=== PATIENT | female | born 1935 | race Caucasian/White ===

== ENCOUNTER 2016-08-21 13:43 | Outpatient (CLI) | payer MEDICARE, OTHER | END 2016-08-21 13:44 | disposition home or self-care (01) | DX: E87.1 Hypo-osmolality and hyponatremia (principal) ==

== ENCOUNTER 2016-11-24 09:35 | Outpatient (CLI) | payer MEDICARE, OTHER ==
--- NOTE | 2016-11-25 17:03 | Nuclear Medicine Report ---
EXAM: THYROID UPTAKE AND SCAN EXAM DATE: 11/24/2016 09:54 AM. CLINICAL HISTORY: THYROID NODULE. COMPARISON: None available. TECHNIQUE: Patient was administered 300 microcuries of I-123 orally and returned at 4 and 24 hours fo r thyroid uptake measurement. At 4 hours after radioiodine ingestion, anterior gamma camera images of the patient's neck were obtained from 3 standard angles. FINDINGS: Uptake: 4 Hour: 4.8%% (Normal 4-18%). 24 Hour: 15.2%% (Normal 8-32%). Thyroid Scan: There is a dominant hot nodule in the lower left thyroid lobe. IMPRESSION: 1. Normal 4 and 24-hour uptake. 2. Dominant hot nodule in the lower left thyroid lobe. [facility] Referring Provider Line: [phone] SITE ID: [id number]
== END 2016-11-24 09:36 | disposition home or self-care (01) ==
LOC: DI 09:35
PROVIDERS: ATTEND Internal Medicine
DX: E04.1 Nontoxic single thyroid nodule (principal)
CPT/HCPCS: 78014; A9509

== ENCOUNTER 2016-12-25 11:36 | Outpatient (CLI) | payer MEDICARE, OTHER ==
--- NOTE | 2016-12-26 13:15 | Mammography Report ---
DIGITAL SCREENING MAMMOGRAM: 12/25/2016 CLINICAL INDICATION: An 81-year-old with family history of breast cancer for screening, history of b enign biopsy. COMPARISON: 12/2015, 12/2014, 12/2013, 12/2012, 11/2011, 11/2010, 10/2009, 09/2008, 09/2007. TECHNIQUE: Routine CC and MLO projections were obtained of the breasts. FINDINGS: The breasts again demonstrate heterogeneously dense fibroglandular parenchyma bilaterally. Coarse and punctate, typically benign calcifications are present. No suspicious masses, clustered microcalcifications, or regions of architectural distortion are identified. IMPRESSION: BENIGN FINDINGS. RECOMMENDATION: Routine annual screening unless otherwise clinically indicated. BIRADS CATEGORY 2 - BENIGN FINDINGS. STANDARD QUALIFYING STATEMENTS 1. This examination was reviewed with the aid of Computer-Aided Detection (CAD). 2. A negative or benign imaging report should not delay biopsy if clinically suspicious findings are present. Consider surgical consultation if warranted. More than 5% of cancers are not identified by i maging. 3. Dense breasts may obscure an underlying neoplasm. JOB #: [id number] EXT JOB #:[id number]
== END 2016-12-25 11:37 | disposition home or self-care (01) ==
LOC: DI.S 11:36
PROVIDERS: ATTEND Internal Medicine
DX: Z12.31 Encounter for screening mammogram for malignant neoplasm of breast (principal); Z80.3 Family history of malignant neoplasm of breast
CPT/HCPCS: 77067

== ENCOUNTER 2017-07-09 09:02 | Outpatient (CLI) | payer MEDICARE, OTHER ==
--- NOTE | 2017-07-09 10:24 | XRAY Report ---
DATE OF SERVICE: 07/09/2017 ESOPHAGRAM: 07/09/2017 CLINICAL INDICATION: Dysphagia. Esophagram was performed in the upright and prone positions. 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 The esophagus demonstrates tertiary contractions. A moderate hiatal hernia is present. No esophageal ulceration or mass lesion is appreciated. No fixed stricturing is identified. Reflux was visualized throughout the course of the examination. A 13-mm barium pill passed from the hypopharynx into the Zenker's diverticulum, then back into the esophagus, through the hiatal hernia, and into the stomach. IMPRESSION 1. 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 2. Moderate hiatal hernia, producing reflux. 3. No esophageal mass lesion, ulceration, or fixed stricturing. FLUOROSCOPY TIME: Two minutes 43 seconds; 26 spot images obtained. TD: 07/09/2017 11:23
== END 2017-07-09 09:03 | disposition home or self-care (01) ==
LOC: DI 09:02
PROVIDERS: ATTEND Internal Medicine
DX: K22.5 Diverticulum of esophagus, acquired (principal); K44.9 Diaphragmatic hernia without obstruction or gangrene; K21.9 Gastro-esophageal reflux disease without esophagitis
CPT/HCPCS: 74220

== ENCOUNTER 2017-12-25 07:11 | Outpatient (CLI) | payer MEDICARE, OTHER ==
[2017-12-25 12:10] LABS: BASOPHILS # (AUTO) 0.1 10^3/uL (0.0-0.1); BASOPHILS % (AUTO) 0.8 %; EOSINOPHILS # (AUTO) 0.6 10^3/uL (0.0-0.7); EOSINOPHILS % (AUTO) 6.4 %; HGB - HEMOGLOBIN 11.6 g/dL (12.0-16.0); LYMPHOCYTES # (AUTO) 2.4 10^3/uL (1.5-3.5); LYMPHOCYTES % (AUTO) 26.2 %; MEAN CORPUSCULAR HEMOGLOBIN 30.9 pg (27.0-31.0); MEAN CORPUSCULAR HGB CONC 33.3 g/dL (32.0-36.0); MEAN CORPUSCULAR VOLUME 92.9 fL (81.0-99.0); MEAN PLATELET VOLUME 9.6 fL (7.9-10.8); MONOCYTES # (AUTO) 0.5 10^3/uL (0.0-1.0); MONOCYTES % (AUTO) 5.6 %; NEUTROPHILS # (AUTO) 5.5 10^3/uL (1.5-6.6); PLT - PLATELET COUNT 404 10^3/uL (130-450); RED BLOOD COUNT 3.76 10^6/uL (4.20-5.40); WHITE BLOOD COUNT 9.1 x10^3/uL (4.8-10.8)
[2017-12-25 12:29] LABS: ALBUMIN/GLOBULIN RATIO 0.8 (1.0-2.2); ALKALINE PHOSPHATASE 55 IU/L (42-121); ALT ALANINE AMINOTRANSFERASE 17 IU/L (10-60); AMYLASE 17 U/L (28-100); AST ASPARTATE AMINOTRANSFERASE 21 IU/L (10-42); BILIRUBIN,TOTAL 0.4 mg/dL (0.2-1.0); BUN - BLOOD UREA NITROGEN 10 mg/dL (6-20); CALCIUM 9.1 mg/dL (8.5-10.3); CARBON DIOXIDE - CO2 28 mmol/L (21-32); CHLORIDE 98 mmol/L (101-111); CHOL/HDL RATIO 3.3 (<4.4); CHOLESTEROL 133 mg/dL; CREATININE 0.8 mg/dL (0.4-1.0); GFR - MDRD 68 (>89); GLUCOSE 120 mg/dL (70-100); HDL CHOLESTEROL 40 mg/dL; LDL CHOLESTEROL,CALCULATED 71 mg/dL; LDL/HDL RATIO 1.8 (<4.4); LIPASE 19 U/L (22-51); SODIUM 134 mmol/L (135-145); TOTAL PROTEIN 6.8 g/dL (6.7-8.2); VLDL CHOLESTEROL 22 mg/dL
[2017-12-25 12:32] LABS: CREATININE,URINE 55.6 mg/dL
[2017-12-25 12:37] LABS: THYROID STIMULATING HORMONE 0.95 uIU/mL (0.34-5.60)
[2017-12-25 12:38] LABS: BILIRUBIN,URINE NEGATIVE (NEGATIVE); GLUCOSE, URINE (UA) NEGATIVE (NEGATIVE); KETONES,URINE (UA) NEGATIVE (NEGATIVE); LEUKOCYTE ESTERASE, URINE LARGE (NEGATIVE); NITRITE,URINE POSITIVE (NEGATIVE); OCCULT BLOOD,URINE NEGATIVE (NEGATIVE); PROTEIN,URINE NEGATIVE (NEGATIVE); UROBILINOGEN,URINE 0.2 (NORMAL) E.U./dL (NORMAL)
[2017-12-25 12:39] LABS: CLARITY,URINE HAZY (CLEAR); FREE T4 (FREE THYROXINE) 1.29 ng/dL (0.58-1.64)
[2017-12-25 12:48] LABS: BACTERIA,URINE Many /HPF (None Seen); RBC,URINE 0-5 /HPF (0-5); SQUAMOUS EPITHELIAL CELL,UR MANY Squamous (<= Few); WBC CLUMPS,URINE PRESENT
[2017-12-25 13:08] LABS: HEMOGLOBIN A1C 0.6 g/dL; HEMOGLOBIN A1C % 6.4 % (4.6-6.2)
[2017-12-25 16:16] LABS: % IRON SATURATION 25 % (20-50); CK- CREATINE KINASE 25 IU/L (22-269); IRON 60 ug/dL (28-170); TOTAL IRON BINDING CAPACITY 244 ug/dL (250-450); TRANSFERRIN 174 mg/dL (192-382)
== END 2017-12-25 07:12 | disposition home or self-care (01) ==
LOC: LAB.F 07:11
PROVIDERS: ATTEND Internal Medicine
DX: E05.90 Thyrotoxicosis, unspecified without thyrotoxic crisis or storm (principal); R63.4 Abnormal weight loss; Z79.899 Other long term (current) drug therapy; D64.9 Anemia, unspecified; R63.0 Anorexia; G43.909 Migraine, unspecified, not intractable, without status migrainosus; E87.1 Hypo-osmolality and hyponatremia; E11.9 Type 2 diabetes mellitus without complications; I10 Essential (primary) hypertension; E78.5 Hyperlipidemia, unspecified; R20.2 Paresthesia of skin; Z13.6 Encounter for screening for cardiovascular disorders
CPT/HCPCS: 36415; 80053; 80061; 81001; 81003; 82043; 82150; 82550; 82570; 82607; 82728; 82746; 83036; 83540; 83690; 83721; 84439; 84443; 84466; 85025; 87086

== ENCOUNTER 2018-01-04 10:26 | Outpatient (CLI) | payer MEDICARE, OTHER ==
[2018-01-04] MEDS ORDERED: IOPAMIDOL-300 50 ML VIAL ONE (10:47)
[2018-01-04] MEDS ORDERED: IOPAMIDOL-300 100 ML VIAL ONE (10:47)
[2018-01-04] MEDS ORDERED: IOPAMIDOL-300 50 ML VIAL PO ONE (11:36)
[2018-01-04] MEDS ORDERED: IOPAMIDOL-300 100 ML VIAL IVP ONE (11:48)
--- NOTE | 2018-01-05 08:59 | CT Report ---
Procedure Date: 01/04/2018 Accession Number: [id number] / [id number] Procedure: CT - Abdomen/Pelvis W/ CPT Code: FULL RESULT: EXAM: CT CHEST, ABDOMEN AND PELVIS EXAM DATE: 01/04/2018 11:58 AM. CLINICAL HISTORY: WEIGHT LOSS, ANEMIA, FATIGUE. COMPARISONS: None. TECHNIQUE: Routine helical CT imaging was performed through the chest, abdomen, and pelvis. IV contrast: ISOVUE 300 100mL. Enteric contrast: No. Reconstructions: Coronal and sagittal. In accordance with CT protocol optimization, one or more of the following dose reduction techniques were utilized for this exam: automated exposure control, adjustment of mA and/or KV based on patient size, or use of iterative reconstructive technique. FINDINGS: Lungs/Pleura: Scattered diffuse increased interstitial lung markings are noted bilaterally. Mild bronchiectasis is noted. There is no pleural effusion or pneumothorax. Mediastinum: There is a heterogeneous appearance of the thyroid gland. No mediastinal mass is seen. There is a large hiatal hernia. Solid organs: The liver is without evidence of an enhancing mass. The spleen, pancreas, and adrenal glands are normal in appearance. The kidneys are without evidence of a mass or hydronephrosis. There is no evidence of hydroureter. The urinary bladder is without evidence of a calculus Peritoneal Cavity/Bowel: Diverticuli are seen involving the descending and sigmoid colon. There is no fat stranding or fluid collection to suggest the presence of diverticulitis. There are no dilated loops of bowel to suggest the presence of an obstruction. The appendix is not clearly identified. There is no CT evidence of acute appendicitis. Pelvic Organs: No mass or cyst is seen within the pelvis. There is no pelvic or periaortic lymphadenopathy. Vasculature: There is atherosclerosis of the aorta and iliac arteries. THere is no evidence of an abdominal aortic aneurysm. Bones: There are degenerative changes of the thoracic and lumbar spine. Other: None. IMPRESSION: Scattered interstitial infiltrates with associated bronchiectasis. This most likely represents an interstitial lung disease. Large hiatal hernia. [facility]
== END 2018-01-04 10:27 | disposition home or self-care (01) ==
LOC: DI 10:26
PROVIDERS: ATTEND Internal Medicine
DX: R91.8 Other nonspecific abnormal finding of lung field (principal); J47.9 Bronchiectasis, uncomplicated; K44.9 Diaphragmatic hernia without obstruction or gangrene
CPT/HCPCS: 71260; 74177; Q9967

== ENCOUNTER 2018-01-14 11:21 | Outpatient (CLI) | payer MEDICARE, OTHER ==
--- NOTE | 2018-01-15 14:52 | Mammography Report ---
Procedure Date: 01/14/2018 Accession Number: [id number] / [id number] Procedure: MGN - Screening Mammo Dig Bilat CPT Code: FULL RESULT: EXAM: Screening Mammo Dig Bilat DATE: 01/14/2018 11:41 AM CLINICAL HISTORY: 82-year-old female with history of right breast procedure was benign pathology results presents for screening mammogram. TECHNIQUE: Bilateral CC and MLO views were obtained. COMPARISON: 12/25/2016, 12/25/2015, 01/04/2015, 01/10/2014. FINDINGS: The breasts demonstrate scattered fibroglandular densities bilaterally. Typically benign coarse calcifications are identified bilaterally. No suspicious masses, clustered microcalcifications, or regions of architectural distortion are identified. IMPRESSION: Benign findings RECOMMENDATION: Routine annual screening unless otherwise clinically indicated. BIRADS CATEGORY 2: Benign findings STANDARD QUALIFYING STATEMENTS: 1. This examination was reviewed with the aid of Computer-Aided Detection (CAD). 2. A negative or benign imaging report should not delay biopsy if clinically suspicious findings are present. Consider surgical consultation if warrented. More than 5% of cancers are not identified by imaging. 3. Dense breasts may obscure an underlying neoplasm.
== END 2018-01-14 11:22 | disposition home or self-care (01) ==
LOC: DI.N 11:21
PROVIDERS: ATTEND Internal Medicine
DX: Z12.31 Encounter for screening mammogram for malignant neoplasm of breast (principal)
CPT/HCPCS: 77067

== ENCOUNTER 2018-01-17 14:52 | Outpatient (CLI) | payer MEDICARE, OTHER ==
--- NOTE | 2018-01-18 07:07 | Ultrasound Report ---
Procedure Date: 01/17/2018 Accession Number: [id number] / [id number] Procedure: US - Head or Neck Soft Tissue CPT Code: FULL RESULT: EXAM: THYROID ULTRASOUND EXAM DATE: 01/17/2018 04:26 PM. CLINICAL HISTORY: MULTINODULAR GOITER. COMPARISON: None. TECHNIQUE: Real time sonographic imaging of the thyroid was performed by the glycerin operator. Multiple national sales representative static images were saved for review. FINDINGS: THYROID GLAND: Right Lobe: 5.3 x 2.3 x 2.3 cm, volume 14.6 cc. Heterogeneous Right Lobe Nodules: Largest nodules 1. Lower pole 1.7 x 1.6 x 1.7 cm low cystic solid, vascular, noncalcified 2. Upper pole 0.9 x 0.5 x 0.6 cm isoechoic, noncalcified Left Lobe: 4.3 x 1.9 x 2.7 cm, volume 11.5 cc. Heterogeneous Left Lobe Nodules: Largest nodules 1. Lower pole 2.4 x 1.7 x 2.5 cm hypoechoic avascular, noncalcified 2. Midpole cystic solid noncalcified 1.2 x 0.7 x 1.1 cm 3. For pole 1.3 x 0.8 cm noncalcified 1.1 x 0.7. Isthmus: 0.31 cm AP. Isthmic Nodules: None. LYMPH NODES: No adenopathy demonstrated in the central or lateral compartment. OTHER: None. IMPRESSION: 1. Multiple bilateral nodules. There is one lower pole nodule on each side which meets criteria for biopsy Management recommendations are based on 2015 [place] [employer] Management Guidelines for Adult Patients with Thyroid Nodules and Differentiated Thyroid Cancer. [facility]
== END 2018-01-17 14:53 | disposition home or self-care (01) ==
LOC: DI 14:52
PROVIDERS: ATTEND Internal Medicine
DX: E04.2 Nontoxic multinodular goiter (principal)
CPT/HCPCS: 76536

== ENCOUNTER 2018-02-05 08:40 | Outpatient (CLI) | payer MEDICARE, OTHER ==
--- NOTE | 2018-02-05 12:08 | Ultrasound Report ---
Procedure Date: 02/05/2018 Accession Number: [id number] / [id number] Procedure: US - Fine Needle Aspiration CPT Code: FULL RESULT: PROCEDURE: ULTRASOUND GUIDED FINE-NEEDLE ASPIRATION PREOPERATIVE DIAGNOSIS: Bilateral thyroid nodules, possibly malignant. POSTOPERATIVE DIAGNOSIS: Same TECHNIQUE: Following written and oral informed consent including procedure risks and alternatives, the patient was brought to the ultrasound suite and positioned. Using local anesthesia, sterile technique, and direct ultrasound control, a FNA needles were advanced to the targeted mass and shaving/aspiration-type technique was used. A total of 4 FNA samples were obtained from the dominant left thyroid nodule and a total of 3 FNA samples were obtained from the dominant right thyroid nodule. All needles were removed. The patient tolerated the procedure well and there were no immediate complications. CONTAMINATED LAND CONSULTANT: Dr Chacon ESTIMATED BLOOD LOSS: Minimal FLUOROSCOPY TIME: None. COMPLICATIONS: None. CONDITION: Good. SPECIMEN: Fine-needle aspirate in appropriate solution. IMPLANTS: None. FINDINGS: Real-time ultrasound performed with static images saved to the PACS demonstrating the needle directed into the mass. IMPRESSION: Uncomplicated ultrasound guided fine needle aspiration as described. Pathology results will be reported separately. [facility]
[2018-02-05] MEDS: BUFFERED LIDOCAINE 10 ML SYRINGE IU ONE (15:42)
== END 2018-02-05 08:41 | disposition home or self-care (01) ==
LOC: DI 08:40
PROVIDERS: ATTEND Internal Medicine
DX: E04.2 Nontoxic multinodular goiter (principal)
CPT/HCPCS: 10022

== ENCOUNTER 2019-01-21 14:48 | Outpatient (CLI) | payer MEDICARE, OTHER ==
--- NOTE | 2019-01-24 08:58 | Mammography Report ---
Reason: ANNUAL SCREENING Procedure Date: 01/21/2019 Accession Number: [id number] / [id number] Procedure: JUAN - Screening Mammo Dig Bilat CPT Code: FULL RESULT: EXAM: Screening Mammo Dig Bilat DATE: 01/21/2019 3:32 PM CLINICAL HISTORY: Screening encounter. History of benign right breast biopsy. Family history of breast cancer in the mother at the age of 55 and a sister at the age of 70. TECHNIQUE: (B) - Bilateral CC, laterally exaggerated CC, MLO views were obtained. COMPARISON: 01/14/2018 through 01/04/2015. PARENCHYMAL PATTERN: (A) - The breast(s) demonstrate(s) scattered fibroglandular densities. FINDINGS: There are coarse typically benign calcifications. There are no suspicious masses, calcifications, or areas of distortion. IMPRESSION: Benign findings. BI-RADS category 2. RECOMMENDATION: (ANNUAL) - Recommend routine annual screening mammography. BI-RADS CATEGORY: (2) - Benign Findings. STANDARD QUALIFYING STATEMENTS: 1. This examination was not reviewed with the aid of Computer-Aided Detection (CAD). 2. A negative or benign imaging report should not preclude biopsy if clinically suspicious findings are present. 3. Dense breasts may obscure an underlying neoplasm. 4. This examination was reviewed without the aid of 3D breast imaging (tomosynthesis).
== END 2019-01-21 14:49 | disposition home or self-care (01) ==
LOC: DI 14:48
PROVIDERS: ATTEND Internal Medicine
DX: Z12.31 Encounter for screening mammogram for malignant neoplasm of breast (principal); Z80.3 Family history of malignant neoplasm of breast
CPT/HCPCS: 77067

== ENCOUNTER 2020-02-02 11:26 | Outpatient (CLI) | payer MEDICARE, OTHER ==
--- NOTE | 2020-02-02 13:15 | XRAY Report ---
PROCEDURE: Chest 2 View X-Ray INDICATIONS: DYSPNEA TECHNIQUE: 2 view(s) of the chest. COMPARISON: CT chest 01/04/2018, chest x-ray 09/21/2014. FINDINGS: Surgical changes and devices: None. Lungs and pleura: No pleural effusions or pneumothorax. Chronic interstitial changes are present wit h a fibrotic like pattern. There is mild increased prominence within the right upper lobe. Overall in terstitial prominence has become progressive over prior exams. Mediastinum: Mediastinal contours are normal. Heart size is normal. Bones and chest wall: No suspicious bony abnormalities. Soft tissues appear unremarkable. IMPRESSION: Progressive appearance of interstitial changes suggestive of fibrosis compared to prior exams. Focal prominence within the right upper lobe is noted. This is suggestive of superimposed acut e/subacute airspace disease such as pneumonia. However, asymmetric progression of fibrotic change can not be completely excluded as most recent prior exam was 2018. Recommend short interval imaging follo w-up after appropriate therapy to document resolution or CT chest for further evaluation. Reviewed by: Jeny Diop MD on 02/02/2020 1:13 PM PDT Approved by: Jeny Diop MD on 02/02/2020 1:13 PM PDT Station ID: [id number]
== END 2020-02-02 11:27 | disposition home or self-care (01) ==
LOC: DI.S 11:26
PROVIDERS: ATTEND Internal Medicine
DX: R06.00 Dyspnea, unspecified (principal)
CPT/HCPCS: 71046

== ENCOUNTER 2020-03-08 10:30 | Outpatient (CLI) | payer MEDICARE, OTHER ==
--- NOTE | 2020-03-08 12:04 | XRAY Report ---
PROCEDURE: Chest 2 View X-Ray INDICATIONS: OTHER NONSPECIFIC ABNORMAL FINDING OF LUNG FIELD TECHNIQUE: 2 view(s) of the chest. COMPARISON: 02/02/2020. FINDINGS: Surgical changes and devices: None. Lungs and pleura: No pleural effusions or pneumothorax. Increased interstitial reticular lung markin gs are noted bilaterally suggestive of chronic interstitial lung parenchymal disease. Ill-defined [place] in right apex is seen suggestive of interstitial prominent fibrosis. Underlying small infiltrate s cannot be excluded. Mediastinum: Mediastinal contours are normal. Heart size is normal. Bones and chest wall: No suspicious bony abnormalities. Soft tissues appear unremarkable. IMPRESSION: Finding is suggestive of chronic interstitial lung parenchyma disease and suggestion of interstitial [place] fibrosis more prominent in right apex not significant changed from prior study. No pleural ef fusion or pneumothorax. No definite focal infiltrate. Reviewed by: Jerry Lake MD on 03/08/2020 12:03 PM PDT Approved by: Jerry Lake MD on 03/08/2020 12:03 PM PDT Station ID: [id number]
== END 2020-03-08 10:31 | disposition home or self-care (01) ==
LOC: DI.S 10:30
PROVIDERS: ATTEND Internal Medicine
DX: R91.8 Other nonspecific abnormal finding of lung field (principal)
CPT/HCPCS: 71046

== ENCOUNTER 2020-03-26 10:49 | Outpatient (CLI) | payer MEDICARE, OTHER ==
[2020-03-26] MEDS ORDERED: IOVERSOL 320 100 ML VIAL IVP ONE ×2 (11:50→13:01)
--- NOTE | 2020-03-26 12:49 | CT Report ---
PROCEDURE: CHEST W INDICATIONS: ABNORMAL CXR CONTRAST: IV CONTRAST: Optiray 320 ml: 100 PO CONTRAST: *NO PO CONTRAST TECHNIQUE: After the administration of intravenous contrast, 5 mm thick sections acquired from the pulmonary api susan to the posterior costophrenic angles. 7 mm thick coronal MIP reformats were acquired. For radia tion dose reduction, the following was used: automated exposure control, adjustment of mA and/or kV according to patient size. COMPARISON: 2 view chest 09/21/[address] with contrast 01/04/2018 reviewed. FINDINGS: Image quality: Excellent. Lungs and pleura: No definite acute air space opacities, but there has been a slowly progressive pat tern of interval worsening of alveolitis and pulmonary fibrosis within the lungs bilaterally, best se en at the upper lobes bilaterally greater on the right than the left with associated lung parenchymal cystic change and also cylindrical bronchiectasis greater on the right than the left. This pattern i s also seen to a lesser degree within the lingular segment of the left upper lobe near the ventricula r apex on the left. Lung volumes are relatively large, COPD may be superimposed.. No pleural effusions or pneumothorax. Central and peripheral airways are patent and the abnormal change in caliber of the airways is best seen at the right upper lobe. Mediastinum: Heart size is normal. No pericardial effusion. No mediastinal or hilar adenopathy by size criteria. Thoracic aorta and central pulmonary arteries are normal in size. Esophagus is eliceo l in caliber. Moderately large hiatal hernia. Bones and chest wall: No suspicious bony lesions. No vertebral body compression fractures. No axil marlen or supraclavicular adenopathy by size criteria. Thyroid gland appears heterogeneous in enhancem ent where well seen and likely contains several nodules within, greater on the right than the left.. Abdomen: Visualized upper abdominal solid organs appear normal. Upper abdominal bowel loops are nor mal in caliber. There is a moderately large hiatal hernia behind the heart. IMPRESSION: 1. Progressive alveolitis and pulmonary fibrosis pattern, with interval development of cystic fibroti c additional fibrotic change is seen through the mid lungs and lower lungs bilaterally, without CT fi ndings that would suggest presence of superimposed acute pneumonia at this time. However, the lung vo lumes are relatively large and COPD may be superimposed. Please correlate clinically for smoking hist ory. 2. Heterogeneous enhancement of the thyroid gland bilaterally with a nodular pattern greater on the r ight than the left. Thyroid nodules likely are present, follow-up thyroid ultrasound is recommended. 3. Note is made of a moderately large hiatal hernia behind the heart. Reviewed by: Santi Kumari MD on 03/26/2020 12:48 PM PDT Approved by: Santi Kumari MD on 03/26/2020 12:48 PM PDT Station ID: [id number]
== END 2020-03-26 10:50 | disposition home or self-care (01) ==
LOC: DI 10:49
PROVIDERS: ATTEND Internal Medicine
DX: R91.8 Other nonspecific abnormal finding of lung field (principal); Z79.899 Other long term (current) drug therapy; J84.112 Idiopathic pulmonary fibrosis; K44.9 Diaphragmatic hernia without obstruction or gangrene
CPT/HCPCS: 36415; 71260; 82565; Q9967

== ENCOUNTER 2020-06-08 12:52 | Outpatient (CLI) | payer MEDICARE, OTHER ==
--- NOTE | 2020-06-08 17:20 | Ultrasound Report ---
PROCEDURE: Head or Neck Soft Tissue INDICATIONS: THYROID NODULE TECHNIQUE: Real time scanning was performed of the neck region of interest, with image documentation . COMPARISON: Prior chest CT scanning 03/27/2020. FINDINGS: There are scattered bilateral thyroid nodules, too evaluated on the right at the upper and lower thirds of the thyroid gland, and 3 clustered at the lower half of the left thyroid gland. The r ight thyroid lobe measures up to 2.1 x 2.9 x 4.8 cm and the left measures up to 1.8 x 2.4 x 4.4 cm. T he isthmus is 1.1 cm in thickness. It is noted that the thyroid gland is low in positioning in this p atient, who demonstrates frequent swallowing despite requested not, and the left thyroid lobe is pred ominantly below the clavicle. The right upper thyroid nodule measures 4 x 7 x 7 mm, is solid, isoechoic, wider than tall, smoothly marginated and contains no abnormal echogenic foci. This yields a TI RADS score of 3, TI RADS categor ization of 3, and no sonographic follow-up or biopsy is recommended given its small size and low degr ee of concern. The right lower thyroid nodule measures 1.8 x 1.9 x 1.5 cm and has not significantly enlarged, and is nearly completely solid, overall isoechoic to slightly hypoechoic, wider than tall, smoothly margina ko and contains no abnormal hyperechoic focus site. This yields a score of 3, categorization of 3, a nd given its average size of less than 2.5 cm follow-up by ultrasound rather than biopsy is recommend ed in 1 year, 3 years, and 5 years. Within the lower half of the left thyroid lobe 3 separate adjacent nodules are present. These each ar e solid or predominantly solid, irregular in margination, and hypoechoic. The nodule considered #3, p ositioned laterally at the margin of the middle third of the gland measures 1.2 x 0.9 x 1.1 cm. This yields a score of 6, and a categorization value of 4. This is considered moderately suspicious but gi vazquez its average size of less than 1.5 cm it is recommended that this be followed by ultrasound in 1, 2, 3, and 5 years from now. More medially at the same axial level the nodule considered #5 measures 2.3 x 1.6 x 1.5 cm and has no t significantly enlarged, this structure is solid, hypoechoic, wider than tall, lobulated/irregular a t its margins, and contains several macrocalcifications. This yields a overall score of 7, categoriza tion of 5, and is considered suspicious. A nodule of this character generally wouldn't be biopsied bu t may not be accessible for safe ultrasound-guided fine needle aspiration. A sonographic attempt at b iopsy is likely warranted but by position and inability of the patient to maintain a nonswallowing st atus safe access is considered likely not possible, and therefore this structure should be followed b y ultrasound instead if biopsy is not possible in 1, 2, 3 and 5 years from now. Finally, at the lower third of the left thyroid lobe even more inferiorly a nodule considered #4 susan ures 1.3 x 0.7 x 1.3 cm, has not enlarged, is predominantly solid, very hypoechoic, wider than tall, irregular in its margination and contains no internal calcifications. This structure yields a score o f 7, a categorization of 5, is suspicious, and given its average size of slightly over 1 cm wouldn't generally be biopsied but again likely will not be interposition for safe biopsy and in that case fol low-up in 1, 2, 3 and 5 years from now is recommended. IMPRESSION: Bilateral thyroid nodules, multiple, none of which appear to have enlarged from a prior thyroid ultra sound in December 2017. These have a variable degree of sonographic concern, and as discussed above the p atient thyroid position is very low including much of the left thyroid lobe is behind the clavicle. F or this reason biopsy into the left lower thyroid nodules may not be safely possible. A sonographic a ssessment for biopsy as discussed above is warranted but may not be successful. In that case follow-u p by ultrasound is recommended as noted above. Reviewed by: Santi Kumari MD on 06/08/2020 5:19 PM PST Approved by: Santi Kumari MD on 06/08/2020 5:19 PM PST Station ID: [id number]
== END 2020-06-08 12:53 | disposition home or self-care (01) ==
LOC: DI 12:52
PROVIDERS: ATTEND Internal Medicine
DX: E04.1 Nontoxic single thyroid nodule (principal)

== ENCOUNTER 2021-05-28 10:55 | Outpatient (CLI) | payer MEDICARE, OTHER ==
[2021-05-28 15:15] LABS: BASOPHILS % (AUTO) 0.2 %; EOSINOPHILS # (AUTO) 0.1 10^3/uL (0.0-0.7); EOSINOPHILS % (AUTO) 0.4 %; HGB - HEMOGLOBIN 12.5 g/dL (12.0-16.0); LYMPHOCYTES # (AUTO) 1.9 10^3/uL (1.5-3.5); LYMPHOCYTES % (AUTO) 11.8 %; MEAN CORPUSCULAR HEMOGLOBIN 30.8 pg (27.0-31.0); MEAN CORPUSCULAR HGB CONC 32.9 g/dL (32.0-36.0); MEAN CORPUSCULAR VOLUME 93.6 fL (81.0-99.0); MEAN PLATELET VOLUME 11.3 fL (7.9-10.8); MONOCYTES # (AUTO) 0.2 10^3/uL (0.0-1.0); MONOCYTES % (AUTO) 1.4 %; NEUTROPHILS # (AUTO) 13.9 10^3/uL (1.5-6.6); NEUTROPHILS % (AUTO) 85.7 %; PLT - PLATELET COUNT 369 10^3/uL (130-450); RED BLOOD COUNT 4.06 10^6/uL (4.20-5.40); RED CELL DISTRIBUTION WIDTH 12.3 % (12.0-15.0); WHITE BLOOD COUNT 16.2 x10^3/uL (4.8-10.8)
[2021-05-28 16:06] LABS: ALKALINE PHOSPHATASE 58 IU/L (42-121); ALT ALANINE AMINOTRANSFERASE 15 IU/L (10-60); AST ASPARTATE AMINOTRANSFERASE 20 IU/L (10-42); BUN - BLOOD UREA NITROGEN 20 mg/dL (6-20); CALCIUM 9.2 mg/dL (8.5-10.3); CARBON DIOXIDE - CO2 29 mmol/L (21-32); CHLORIDE 89 mmol/L (101-111); CHOL/HDL RATIO 3.6 (<4.4); CHOLESTEROL 243 mg/dL; CK- CREATINE KINASE 14 IU/L (22-269); CREATININE 0.8 mg/dL (0.4-1.0); GFR - MDRD 68 (>89); GLUCOSE 197 mg/dL (70-100); HDL CHOLESTEROL 67 mg/dL; LDL CHOLESTEROL,CALCULATED 144 mg/dL; LDL/HDL RATIO 2.1 (<4.4); POTASSIUM 4.4 mmol/L (3.5-5.0); SODIUM 128 mmol/L (135-145); TOTAL PROTEIN 6.1 g/dL (6.7-8.2); TRIGLYCERIDES 159 mg/dL; VLDL CHOLESTEROL 32 mg/dL
[2021-05-28 16:10] LABS: CREATININE,URINE 69.8 mg/dL; MICROALBUM/CREATININE RATIO,UR 31.5 ug/mg (<30.0); MICROALBUMIN,URINE 2.2 mg/dL (0-300.0)
[2021-05-28 16:17] LABS: THYROID STIMULATING HORMONE 1.22 uIU/mL (0.34-5.60)
[2021-05-28 16:19] LABS: FREE T4 (FREE THYROXINE) 1.22 ng/dL (0.58-1.64)
[2021-05-28 19:46] LABS: ESTIMATED AVERAGE GLUCOSE 197 mg/dL (70-100); HEMOGLOBIN A1c% 8.5 % (4.27-6.07)
== END 2021-05-28 10:56 | disposition home or self-care (01) ==
LOC: LAB.S 10:55
PROVIDERS: ATTEND Internal Medicine
DX: Z13.6 Encounter for screening for cardiovascular disorders (principal); R06.00 Dyspnea, unspecified; I10 Essential (primary) hypertension; K21.9 Gastro-esophageal reflux disease without esophagitis; E11.9 Type 2 diabetes mellitus without complications; E05.90 Thyrotoxicosis, unspecified without thyrotoxic crisis or storm; D63.8 Anemia in other chronic diseases classified elsewhere; Z79.899 Other long term (current) drug therapy
CPT/HCPCS: 36415; 80053; 80061; 82043; 82550; 82570; 83036; 83721; 84439; 84443; 85025

== ENCOUNTER 2021-07-01 13:17 | Outpatient (CLI) | payer MEDICARE, OTHER ==
--- NOTE | 2021-07-02 17:25 | Mammography Report ---
BILATERAL DIGITAL SCREENING MAMMOGRAM 3D/2D WITH EXAGGERATED CC: 07/01/2021 CLINICAL: Routine screening. Family history of breast cancer. Comparison is made to exams dated: 01/21/2019 mammogram, 01/14/2018 mammogram, and 12/25/2016 mammogram - [facility]. The tissue of both breasts is heterogeneously dense. This may lower t he sensitivity of mammography. Please note that positioning was limited due to patient condition and tomosynthesis views were unable to be performed. There are benign calcifications in both breasts. No significant masses, calcifications, or other findings are seen in either breast. There has been no significant interval change. IMPRESSION: BENIGN There is no mammographic evidence of malignancy. A 1 year screening mammogram is recommended. This exam was interpreted at Station ID: [id number]. NOTE: For mammograms, a report in lay terms will be sent to the patient. Approximately 15% of breast malignancies will not be visualized mammographically. In the management of a palpable breast mass, a negative mammogram must not discourage biopsy of a clinically suspicious lesion. Electronically Signed By: En oakley/lakhwinder:07/01/2021 15:01:36 ACR BI-RADS Category 2: Benign Finding(s) 3342F C -Heterogeneously dense 2 Mammogram [id number] 1 year screening B
== END 2021-07-01 13:18 | disposition home or self-care (01) ==
LOC: DI.S 13:17
PROVIDERS: ATTEND Internal Medicine
DX: Z12.31 Encounter for screening mammogram for malignant neoplasm of breast (principal); Z80.3 Family history of malignant neoplasm of breast

== ENCOUNTER 2021-07-08 15:03 | Outpatient (CLI) | payer MEDICARE, OTHER ==
--- NOTE | 2021-07-08 17:39 | Ultrasound Report ---
PROCEDURE: Head or Neck Soft Tissue INDICATIONS: HISTORY OF NODULES TECHNIQUE: Real-time scanning was performed of the thyroid gland, with image documentation. COMPARISON: Thyroid ultrasound 06/08/2020. FINDINGS: Right: Thyroid lobe measures 4.3 x 2.4 x 2.2 cm, and is homogeneous in echotexture. Left: Thyroid lobe measures 3.9 x 2.2 x 2.1 cm, and is homogenous in echotexture. Isthmus: 3 mm thick. Several bilateral thyroid nodules. The largest thyroid nodules are reported. Nodule number: 1 Location: Right inferior Size: 1.8 x 1.6 x 1.5 cm. Unchanged. Composition: Spongiform Echogenicity: Isoechoic Shape: wider than tall. Margins: Smooth Echogenic foci: None Total points: 1 ACR TI-RADS category: TR 1, not suspicious Nodule number: 2 Location: Left inferior lateral Size: 0.9 x 0.8 x 0.7 cm. (Previously measured 1.2 x 1.1 x 0.9 cm). Composition: Solid Echogenicity: Hypoechoic Shape: wider than tall. Margins: Smooth Echogenic foci: None. Total points: 4 ACR TI-RADS category: TR 4, moderately suspicious Nodule number: 3 Location: Left inferior Size: 1.9 x 1.8 x 1.7 cm. (Previously measured 2.5 x 2.3 x 1.7 cm). Composition: Solid Echogenicity: Hypoechoic Shape: wider than tall. Margins: Smooth Echogenic foci: Central calcification Total points: 5 ACR TI-RADS category: TR 4, moderately suspicious Nodule number: 4 Location: Left inferior medial Size: 1.3 x 1.1 x 0.7 cm cm. Composition: Prominently solid Echogenicity: Hypoechoic Shape: wider than tall. Margins: Smooth Echogenic foci: None. Total points: 4 ACR TI-RADS category: TR 4, moderately suspicious IMPRESSION: 1. Left inferior thyroid nodule measuring 1.9 cm. TR 4, moderately suspicious. This nodule is decreas e in size and contains a central calcification. -FNA should be considered if not yet performed. 2. Left inferior medial thyroid nodule measuring 1.3 cm. TR 4, moderately suspicious. -Recommend follow-up thyroid ultrasound. ACR TI-RADS definitions and recommendations: TI-RADS 1 (benign): 0 points. FNA not needed. TI-RADS 2 (not suspicious): 2 points. FNA not needed. TI-RADS 3 (mildly suspicious): 3 points. "FNA if 2.5 cm or larger, follow up if 1.5 cm or larger (at 1, 3, and 5 years). TI-RADS 4 (moderately suspicious): 4-6 points. "FNA if 1.5 cm or larger, follow up if 1 cm or larger (at 1, 2, 3, and 5 years). TI-RADS 5 (highly suspicious): 7 points or more. "FNA if 1 cm or larger, follow up if 0.5 cm or larger (every year for 5 years). Reviewed by: Kong Doherty MD on 07/08/2021 5:37 PM PST Approved by: Kong Doherty MD on 07/08/2021 5:37 PM PST Station ID: [id number]
== END 2021-07-08 15:04 | disposition home or self-care (01) ==
LOC: DI 15:03
PROVIDERS: ATTEND Internal Medicine
DX: E04.2 Nontoxic multinodular goiter (principal)

== ENCOUNTER 2021-07-29 13:49 | Outpatient (CLI) | payer MEDICARE, OTHER ==
[~2021-07-29 13:49] MED LIST: lidocaine 1% 20 ML MDV ONE
--- NOTE | 2021-07-29 21:12 | Ultrasound Report ---
PROCEDURE: Head or Neck Soft Tissue INDICATIONS: LT THYROID NODULE TECHNIQUE: Real time scanning was performed of the neck region of interest, with image documentation . COMPARISON: Thyroid ultrasound 07/08/2021 FINDINGS: Limited sonographic images demonstrate inferior left thyroid nodule as previously identifie d. Secondary to location as well as patient's ability for positioning, sick access could not be obtai ciara for fine-needle aspiration. IMPRESSION: Left inferior thyroid nodule unchanged. The above was discussed with Dr. Vandana Salazar on 07/29/2021 at 4:00 PM. Reviewed by: Jeny Diop MD on 07/29/2021 9:10 PM PST Approved by: Jeny Diop MD on 07/29/2021 9:10 PM PST Station ID: [id number]
== END 2021-07-29 13:50 | disposition home or self-care (01) ==
LOC: DI 13:49
PROVIDERS: ATTEND Internal Medicine
DX: E04.1 Nontoxic single thyroid nodule (principal)